=== PATIENT | male | born 2000 | race Caucasian/White ===

== ENCOUNTER 2025-08-17 06:34 | Observation (INO) | payer OTHER ==
[~2025-08-17] VITALS: Ht 180.3 cm; Wt 59.0 kg
[2025-08-17 07:39] LABS: BASOPHILS ABSOLUTE AUTO 0.10 K/mm3 (0.00-0.23); BASOPHILS PERCENT AUTO 1 % (0-2); EOSINOPHILS ABSOLUTE AUTO 0.08 K/mm3 (0.00-0.68); EOSINOPHILS PERCENT AUTO 1 % (0-6); Hematocrit 47.7 % (37.0-53.0); Hemoglobin 16.1 g/dL (13.5-17.5); IMMATURE GRAN ABSOLUTE AUTO 0.04 K/mm3 (0.00-0.10); IMMATURE GRAN PERCENT AUTO 1 % (0-1); LYMPHOCYTES ABSOLUTE AUTO 1.65 K/mm3 (0.84-5.20); LYMPHOCYTES PERCENT AUTO 24 % (21-46); MONOCYTES ABSOLUTE AUTO 0.54 K/mm3 (0.16-1.47); MONOCYTES PERCENT AUTO 8 % (4-13); Mean Corpuscular HGB Conc 33.8 g/dL (31.5-36.5); Mean Corpuscular Volume 86 fL (80-100); NEUTROPHILS ABSOLUTE AUTO 4.51 K/mm3 (1.96-9.15); NEUTROPHILS PERCENT AUTO 65 % (41-73); NRBC ABSOLUTE 0.00 K/mm3 (0.00-0.02); NRBC Auto 0.0 /100 WBC (0.0-0.2); Platelet Count 286 K/mm3 (150-400); RDW Coefficient Variation 13.1 % (11.7-14.2); RDW Standard Deviation 40.6 fL (35.1-46.3)
[2025-08-17 08:13] LABS: Ethanol (Alcohol), Blood, Med 152 mg/dL; Salicylate 2.6 mg/dL (2.8-20.0); Thyroid Stimulating Hormone 1.350 uIU/mL (0.360-4.800)
[2025-08-17 08:19] LABS: Acetaminophen, Random <2.0 ug/mL (10.0-30.0); Alanine Aminotransfer (ALT/SGP 33 U/L (12-78); Albumin, Blood 4.4 g/dL (3.4-5.0); Albumin/Globulin Ratio 1.2 (0.8-1.8); Anion Gap 9 mmol/L (3-11); Aspartate Aminotrans (AST/SGOT 30 U/L (12-37); Bilirubin, Total 0.2 mg/dL (0.1-1.0); Blood Urea Nitrogen 12 mg/dL (8-24); CO2, Blood 24 mmol/L (21-32); Calcium, Blood 9.1 mg/dL (8.5-10.1); Chloride, Blood 111 mmol/L (98-108); Creatinine, Blood 1.04 mg/dL (0.60-1.20); Globulin, Blood 3.8 g/dL (2.2-4.0); Glucose, Blood 98 mg/dL (70-99); Potassium, Blood 3.6 mmol/L (3.5-5.5); Sodium, Blood 140 mmol/L (136-145); Total Protein, Blood 8.2 g/dL (6.4-8.2)
[2025-08-17] MEDS ORDERED: LORazepam 2 MG/ML 1ML Injection IM ONE (14:25)
[2025-08-17] MEDS ORDERED: DiphenhydrAMINE HCl 50 MG/ML 1ML Vial IM ONE (14:25)
[2025-08-17] MEDS ORDERED: Haloperidol Lactate Inj. 5 MG/ML Injection IM ONE (14:25)
== END 2025-08-17 16:20 | disposition other institution (70) ==
LOC: ER 06:34 → EOR 06:35
PROVIDERS: ADMIT Emergency Medicine
DX: F32.A Depression, unspecified (principal); R45.851 Suicidal ideations
CPT/HCPCS: 36415; 80053; 80320; 84443; 85025; 96372; 99285-25; A9270; G0378; G0480; J1200; J1630; J2060

== ENCOUNTER 2025-08-17 15:02 | Inpatient (IN) | payer OTHER ==
[~2025-08-17] VITALS: Ht 180.3 cm; Wt 58.7 kg
[2025-08-17 16:30] VITALS: BP 113/87
[2025-08-17 16:55] VITALS: BP 113/87
--- NOTE | 2025-08-17 17:20 | NUR ---
ADMISSION SUMMARY PT ADMITTED FROM [facility] ED FOR SI. PT GIVEN BENEDRYL, HALDOL, AND ATIVAN INJECTION PRIOR TO TRANSFER AND WAS SEDATED UPON ARRIVAL. PT UNABLE TO ANSWER VAST MAJORITY OF ADMISSION QUESTIONS OR SIGN PAPERWORK DUE TO FALLING ASLEEP. PT ARRIVED TO UNIT IN A PAIR OF MAKESHIFT PAPER SHORTS AND A BLANKET. PER ED RN, THE PT BECAME AGITATED AND TORE HIS PAPER SCRUBS OFF, WHICH IS WHY HE RECEIVED PRN MEDICATION PRIOR TO ARRIVAL. 2 RN SKIN CHECK COMPLETED WITH ADIA THOMSON. NO SKIN ABNORMALITIES NOTED. SI SAFETY SCREEN UNABLE TO BE FULLY COMPLETED DUE TO SEDATION, BUT PT DID SAY "NO" WHEN ASKED IF HE WAS CURRENTLY SUICIDAL. PER ED RN AND CHART NOTES THE PT BROUGHT TO THE ED FOR VAGUE SI AFTER FINDING OUT THAT HIS EX ATTEMPTED TO HAVE ROMANTIC RELATIONS WITH HIS FATHER. PT ALSO INTOXICATED WHEN HE ARRIVED TO ED. PER ED RN AND CHART NOTES, THE PT DENIED SI WHILE IN ED, BUT RN AND PHYSICIAN WERE INFORMED BY FAMILY MEMBER THAT HE WAS SENDING TEXT MESSAGES STATING THAT HE WAS GOING TO KILL HIMSELF. PT INVOLUNTARY AT THIS TIME. UNABLE TO OBTAIN HEALTH HISTORY AT THIS TIME DUE TO SEDATION. PT ESCORTED TO HIS ROOM AND IS CURRENTLY ASLEEP AT THIS TIME.
[2025-08-17] MEDS ORDERED: Aluminum Hydroxide 320MG/5ML 473 ML PO PRN (20:05)
[2025-08-17] MEDS ORDERED: FLU VACC TS2025-26(6MOS UP)/PF 45 MCG/0.5 ML SYRINGE IM SCH (20:05)
[2025-08-17] MEDS ORDERED: Polyethylene Glycol 3350 17 gm PO PRN (20:10)
[2025-08-17] MEDS ORDERED: Ondansetron 4 MG SoluTab MM PRN (20:10)
--- NOTE | 2025-08-18 06:13 | NUR ---
SHIFT SUMMARY At the beginning of the shift, pt was lying on his bed with eyes closed, appearing to be asleep. Respirations regular and unlabored, no apparent distress. Pt remained in his room the entire shift. Staff continues to monitor q15m for safety and wellness.
[2025-08-18 07:44] VITALS: BP 127/93
[2025-08-18 08:08] LABS: CHOL/HDL RATIO 2.3; Cholesterol 135 mg/dL (50-200); HDL Cholesterol 58 mg/dL (>39); LDL/HDL RATIO 0.9; Low Density Lipoprotein Chol 54 mg/dL (0-110); Triglycerides 114 mg/dL (30-140); Very Low Density Lipoprot Chol 22 mg/dL (6-28)
[2025-08-18] MEDS ORDERED: Multivitamins 1 Tab PO SCH (09:00)
--- NOTE | 2025-08-18 17:17 | NUR ---
SHIFT SUMMARY PT A/O X4; PLEASANT AND COOPERATIVE WITH CARE. HE DENIES SI, HI, AVTH. PT WAS ABLE SIGN ADMISSION PAPER WORK THIS MORNING. PT STATED THAT HE BECAME UPSET YESTERDAY AFTER LEARNING THAT HIS EX TRIED TO HAVE ROMANTIC RELATIONS WITH HIS FATHER. PT SAID THAT GOT VERY DRUNK AND FELT THAT HE HIT "ROCK BOTTOM". PT EDUCATED ON 2 MD HOLD PROCESS AND HE EXPRESSED UNDERSTANDING. PT'S AFFECT IS FLAT AND HE SAYS HIS MOOD IS "OK". HE CONTINUES TO BE MONITORED Q15 PER UNIT PROTOCOL FOR SAFETY AND WELLNESS.
[2025-08-18 19:02] VITALS: BP 123/93
--- NOTE | 2025-08-19 05:47 | NUR ---
SHIFT SUMMARY Pt was resting in his room at the beginning of the shift. Pt is A&O, calm, cooperative, polite, appropriately dressed, eye contact is appropriate. Pt stated that his mood is "stagnate, calm," affect is sad. Pt denies SI, HI, and hallucinations. He was able to speak to his brother today and his brother is arranging for him and pt s father to visit. Pt was out of his room for a snack. He requested PRN trazodone for sleep and received that at 2036 before returning to his room. Staff continues to monitor q15m for safety and wellness.
[2025-08-19 07:55] VITALS: BP 129/86
--- NOTE | 2025-08-19 17:29 | NUR ---
SHIFT SUMMARY PT AxOx4. PLEASANT AND COOPERATIVE WITH CARE. PT DENIED SI/HI AND AVTH THIS SHIFT. HE REPORTED FEELING ANXIOUS AND NOT WANTING TO BE HERE, BUT HAS ALSO BEEN COOPERATIVE BY FOLLOWING HIS TREATMENT PLAN INCLUDING TAKING MEDICATIONS PRESCRIBED, ATTENDING ALL MILIE[employer] THERAPY GROUPS AND MINGLING APPROPRIATELY WITH PEERS/STAFF. PT WAS PROVIDED PRN ANTI-ANXIETY MEDS BASED ON MASS SCORE WITH REPORTED RELIEF. PROVIDED ORDERED NEW MEDS TO BE STARTED THIS EVENING. PT EDUCATION PROVIDED ON EXPECTED MEDICATIONS. PT IS CURRENTLY SITTING IN DAY ROOM WATCHING TV. DENIES ANY NEEDS AT THIS TIME.
[2025-08-19 19:09] VITALS: BP 143/95
--- NOTE | 2025-08-20 05:18 | NUR ---
SHIFT SUMMARY Pt is A&O, calm, cooperative, polite, appropriately dressed, eye contact is appropriate. Pt stated that his mood is "stable," affect is anxious. Pt denies SI, HI, and hallucinations. Pt also denies current pain. This RN advised that pt was restarting aripiprazole and prazosin tonight. Pt stated that he is familiar with these meds since he has been on them previously. Pt was active on the milieu this evening, watching TV in the group room with peers. Pt requested PRN trazodone for sleep and received it with his HS meds. Staff continues to monitor q15m for safety and wellness.
[2025-08-20 07:11] VITALS: BP 122/97
--- NOTE | 2025-08-20 13:08 | NUR ---
NURSE NOTE PT BECAME NAUSEATED DURING LUNCH, AND HE VOMITED. MEDICATED PT WITH ZOFRAN, PT TO HIS ROOM TO REST ON BED.
--- NOTE | 2025-08-20 17:52 | NUR ---
SHIFT SUMMARY PT AxOx4. PLEASANT AND COOPERATIVE WITH CARE. PT DENIED SI/HI AND AVTH THIS SHIFT AND REPORTED HIS MOOD WAS BETTER AND MORE COMFORTABLE AT AM ASSESSMENT. PT HAS BEEN FOLLOWING HIS TREATMENT PLAN INCLUDING TAKING MEDICATIONS PRESCRIBED, ATTENDING ALL MILIEU THERAPY GROUPS AND MINGLING APPROPRIATELY WITH PEERS/STAFF. PT DENIES ANY SUSPECTED SIDE EFFECTS FROM NEW MEDICATIONS. PT HAD VISIT WITH PARENTS TODAY, WHICH HE REPORTED WAS A GOOD VISIT. PT IS CURRENTLY SITTING IN DINING ROOM EATING DINNER. HE DENIES ANY NEEDS AT THIS TIME. CURRENT DC PLAN IS FOR AN ANTICIPATED DC/HOLD RELEASE TOMORROW. PT IS AWARE OF AND AGREEABLE TO THIS PLAN.
[2025-08-20 20:43] VITALS: BP 148/94
--- NOTE | 2025-08-21 04:45 | NUR ---
SHIFT SUMMARY: PATIENT IS A 25 YEAR OLD MALE ADMITTED TO THE [facility] ON 08/17/25 WITH A DIAGNOSIS OF SI. HE PRESENTED ADEQUATELY GROOMED AND POLITE, A AND O X4, SPEAKS IN A MODERATE AND PLEASANT VOICE AND MAKES APPROPRIATE EYE CONTACT. HE DESCRIBED HIS MOOD "VERY GOOD" AND IS "LOOKING FORWARD TO GOING HOME TOMORROW." HE DENIED SI, THOUGHTS OF SELF HARMING AND A/V/T HALLUCINATIONS. HE PARTICIPATED IN SNACK AND WRAP UP GROUP, AND WAS COMPLIANT WITH MEDICATION ADMINISTRATION. HE REQUESTED AND WAS GIVEN TRAZODONE AT 2047 FOR C/O INSOMNIA. HE WAS GIVEN MEDICATION EDUCATION AND STATED, "THE TRAZODONE REALLY HELPED LAST NIGHT". IT WAS ALSO EFFECTIVE THIS SHIFT, AND PATIENT WAS NOTED TO BE RESTING QUIETLY IN BED FOR THE REMAINDER OF THE SHIFT, RESPIRATIONS CONFIRMED. CONTINUING TO MONITOR FOR SAFETY WITH Q15 MINUTE CHECKS.
[2025-08-21 07:35] VITALS: BP 133/95
[2025-08-21] MEDS ORDERED: ABILIFY MYCITE5 M2 PO (11:28)
[2025-08-21] MEDS ORDERED: PRAZ1 PO (11:28)
--- NOTE | 2025-08-21 12:32 | NUR ---
IMPORTANT DISCHARGE INFORMATION PATIENT TO BE DISCHARGED TODAY. HIS FATHER WILL PICKING HIM UP AROUND 1PM. ALL PARTIES VERBALIZE AN UNDERSTANDING. HE NOW HAS [facility] INSURANCE FOR CONTINUED MEDICAL NEED. ALL PARTIES VERBALIZE AN UNDERSTANDING. FOLLOW UP APPOINTMENT WITH DR. GUPTA AT THE [facility] ON 08/26/25 AT 10:30AM FOLLOW UP MENTAL HEALTH AT [facility] WITH AMINA TORO ON 08/22/25 AT 10:00AM PHARMACY: [facility]
--- NOTE | 2025-08-21 13:08 | NUR ---
DISCHARGE PT A/O X4; PLEASANT AND COOPERATIVE WITH CARE. HE DENIES SI, HI, AVTH. PT STATES THAT HE FEELS READY TO LEAVE AND MISSES HIS CAT. DISCHARGE MEDICATIONS FAXED TO [facility]. FOLLOW UP APPOINTMENT SCHEDULED BY ADIA YOU. PT EDUCATED ON DISCHARGE INSTRUCTIONS AND VERBALIZED UNDERSTANDING. PT'S BELONGINGS RETURNED AND PT LEFT THE UNIT AT 1311.
== END 2025-08-21 13:11 | disposition home or self-care (01) | DRG 881 ==
LOC: BHU 15:02
PROVIDERS: ADMIT Psychiatry & Neurology Psychiatry
DX: F32.A Depression, unspecified (principal); R45.851 Suicidal ideations; Z28.21 Immunization not carried out because of patient refusal; Z79.899 Other long term (current) drug therapy; Z79.1 Long term (current) use of non-steroidal anti-inflammatories (NSAID)
CPT/HCPCS: 36415; 80061; 83036; A9270

== ENCOUNTER → 2025-08-26 | Outpatient (CLI) | payer OTHER ==
[~2025-08-26] MED LIST: ABILIFY MYCITE5 M2 PO; PRAZ1 PO
[2025-08-26 16:06] LABS: BASOPHILS ABSOLUTE AUTO 0.10 K/mm3 (0.00-0.23); BASOPHILS PERCENT AUTO 2 % (0-2); EOSINOPHILS ABSOLUTE AUTO 0.10 K/mm3 (0.00-0.68); EOSINOPHILS PERCENT AUTO 2 % (0-6); Hematocrit 44.1 % (37.0-53.0); Hemoglobin 14.3 g/dL (13.5-17.5); IMMATURE GRAN ABSOLUTE AUTO 0.03 K/mm3 (0.00-0.10); IMMATURE GRAN PERCENT AUTO 1 % (0-1); LYMPHOCYTES ABSOLUTE AUTO 1.31 K/mm3 (0.84-5.20); LYMPHOCYTES PERCENT AUTO 21 % (21-46); MONOCYTES ABSOLUTE AUTO 0.49 K/mm3 (0.16-1.47); MONOCYTES PERCENT AUTO 8 % (4-13); Mean Corpuscular HGB Conc 32.4 g/dL (31.5-36.5); Mean Corpuscular Volume 88 fL (80-100); NEUTROPHILS ABSOLUTE AUTO 4.18 K/mm3 (1.96-9.15); NEUTROPHILS PERCENT AUTO 67 % (41-73); NRBC ABSOLUTE 0.00 K/mm3 (0.00-0.02); NRBC Auto 0.0 /100 WBC (0.0-0.2); Platelet Count 267 K/mm3 (150-400); RDW Coefficient Variation 13.6 % (11.7-14.2); RDW Standard Deviation 43.8 fL (35.1-46.3)
[2025-08-26 16:25] LABS: Alanine Aminotransfer (ALT/SGP 34 U/L (12-78); Albumin, Blood 4.1 g/dL (3.4-5.0); Albumin/Globulin Ratio 1.2 (0.8-1.8); Anion Gap 3 mmol/L (3-11); Aspartate Aminotrans (AST/SGOT 18 U/L (12-37); Bilirubin, Total 0.2 mg/dL (0.1-1.0); Blood Urea Nitrogen 9 mg/dL (8-24); CHOL/HDL RATIO 2.1; CO2, Blood 31 mmol/L (21-32); Calcium, Blood 8.7 mg/dL (8.5-10.1); Chloride, Blood 108 mmol/L (98-108); Cholesterol 125 mg/dL (50-200); Creatinine, Blood 0.96 mg/dL (0.60-1.20); Globulin, Blood 3.4 g/dL (2.2-4.0); Glucose, Blood 93 mg/dL (70-99); HDL Cholesterol 59 mg/dL (>39); LDL/HDL RATIO 0.9; Low Density Lipoprotein Chol 51 mg/dL (0-110); Potassium, Blood 4.1 mmol/L (3.5-5.5); Sodium, Blood 138 mmol/L (136-145); Thyroid Stimulating Hormone 1.030 uIU/mL (0.360-4.800); Total Protein, Blood 7.5 g/dL (6.4-8.2); Triglycerides 75 mg/dL (30-140); Very Low Density Lipoprot Chol 15 mg/dL (6-28)
== END ==
LOC: LAB 11:50 → LAB SHORT 11:50
PROVIDERS: Student in an Organized Health Care Education/Training Program
DX: F23 Brief psychotic disorder (principal)
CPT/HCPCS: 80053; 80061; 84443; 85025